=== PATIENT | male | born 1970 | race African-American/Black ===

== ENCOUNTER 2017-04-16 12:00 | Emergency (ER) | payer OTHER, MEDICAID ==
[~2017-04-16] VITALS: Ht 195.6 cm; Wt 90.9 kg
[2017-04-16 15:52] LABS: CLARITY URINE CLEAR (CLEAR); COLOR URINE YELLOW (YELLOW); KETONES URINE TRACE (NEGATIVE); LEUKOCYTE ESTERASE URINE NEGATIVE (NEGATIVE); NITRITE URINE NEGATIVE (NEGATIVE); OCCULT BLOOD URINE NEGATIVE (NEGATIVE); PROTEIN URINE NEGATIVE (NEGATIVE); SPECIFIC GRAVITY URINE 1.018 (1.005-1.030)
[2017-04-16] MEDS ORDERED: SODIUM CHLORIDE 0.9% 1,000 ML IV ONE (16:01)
[2017-04-16] MEDS ORDERED: KETOROLAC 30MG/ML VIAL IV STA (16:01)
[2017-04-16] MEDS ORDERED: ONDANSETRON HCL 4MG/2ML VIAL IV STA (16:01)
[2017-04-16 16:13] LABS: BASOPHILS % 0.5 % (0.0-2.0); EOSINOPHILS % 2.1 % (0.0-5.0); HEMATOCRIT. 44.1 % (42.0-52.0); HEMOGLOBIN. 14.9 g/dL (14.0-18.0); LYMPHOCYTES % 13.3 % (20.0-50.0); MEAN CORPUSCULAR HEMOGLOBIN 31.2 pg (28.0-32.0); MEAN CORPUSCULAR VOLUME 92.5 fL (80.0-94.0); MEAN PLATELET VOLUME 8.5 fl (7.4-10.4); MONOCYTES % 9.7 % (2.0-8.0); NEUTROPHILS % 74.4 % (40.0-76.0); PLATELET 234 x1000/uL (130-400); RED BLOOD CELL COUNT 4.77 mill/uL (4.7-6.1)
[2017-04-16 16:14] LABS: CHLORIDE 104 mEq/L (98-107)
[2017-04-16 16:20] LABS: ETHANOL BLOOD < 10 mg/dL
[2017-04-16 19:27] VITALS: BP 139/87
== END 2017-04-16 20:06 | disposition home or self-care (01) ==
LOC: ER 13:11
DX: K29.00 Acute gastritis without bleeding (principal)
CPT/HCPCS: 36415; 80053; 81003; 83690; 85025; 96361; 96374; 96375; 99284; G0482; J1885; J2405; J7030

== ENCOUNTER 2017-10-10 07:34 | Emergency (ER) | payer OTHER, MEDICAID ==
[~2017-10-10] VITALS: Ht 195.6 cm; Wt 91.0 kg
[2017-10-10] MEDS ORDERED: BACITRACIN ZINC OINT UDPKT TOP ONE (10:30)
[2017-10-10] MEDS ORDERED: IBUPROFEN 600MG TABLET PO ONE (10:30)
[2017-10-10 15:32] VITALS: BP 156/103
== END 2017-10-10 15:34 | disposition home or self-care (01) ==
LOC: ER 09:06
DX: S70.01XA Contusion of right hip, initial encounter (principal); S40.211A Abrasion of right shoulder, initial encounter; S50.311A Abrasion of right elbow, initial encounter; S50.811A Abrasion of right forearm, initial encounter; I10 Essential (primary) hypertension; F17.200 Nicotine dependence, unspecified, uncomplicated; V18.0XXA Pedal cycle driver injured in noncollision transport accident in nontraffic accident, initial encounter; Y93.89 Activity, other specified; Y92.89 Other specified places as the place of occurrence of the external cause; Y99.8 Other external cause status
CPT/HCPCS: 73080; 73090; 73200; 73502; 99284; A4565

== ENCOUNTER 2018-04-25 11:29 | Emergency (ER) | payer MEDICAID, OTHER ==
[~2018-04-25] VITALS: Ht 195.6 cm; Wt 90.0 kg
[2018-04-25 11:51] VITALS: BP 135/89
[2018-04-25] MEDS ORDERED: ACETAMINOPHEN 325MG TABLET PO ONE (12:30)
== END 2018-04-25 13:40 | disposition home or self-care (01) ==
LOC: ER 11:29
DX: M25.462 Effusion, left knee (principal)
CPT/HCPCS: 73562; 99283

== ENCOUNTER 2018-05-23 09:57 | Emergency (ER) | payer OTHER ==
[~2018-05-23] VITALS: Ht 195.6 cm; Wt 91.0 kg
[2018-05-23 10:29] VITALS: BP 152/96
[2018-05-23] MEDS ORDERED: AMLO5TAB88 PO (10:34)
[2018-05-23] MEDS ORDERED: LIDOCAINE HCL/PF 1% 10 MG/ML 5ML VIAL IJ ONE (12:00)
[2018-05-23] MEDS ORDERED: KETOROLAC 30MG/ML VIAL IM ONE (12:00)
== END 2018-05-23 13:25 | disposition home or self-care (01) ==
LOC: ER 10:36
DX: L02.01 Cutaneous abscess of face (principal)
CPT/HCPCS: 10060; 87070; 87205; 96372; 99283; J1885; J3490

== ENCOUNTER 2020-01-14 09:39 | Emergency (ER) | payer OTHER ==
[~2020-01-14] VITALS: Ht 195.6 cm; Wt 91.0 kg
[~2020-01-14 09:39] MED LIST: AMLO5TAB88 PO
[2020-01-14 10:00] VITALS: BP 153/92
[2020-01-14] MEDS ORDERED: KETOROLAC 60MG/2ML VIAL IM ONE (10:00)
== END 2020-01-14 11:19 | disposition home or self-care (01) ==
LOC: ER 09:39
DX: M54.5 Low back pain (principal); I10 Essential (primary) hypertension
CPT/HCPCS: 96372; 99283; J1885

== ENCOUNTER 2020-06-09 08:08 | Emergency (ER) | payer OTHER ==
[~2020-06-09] VITALS: Ht 195.6 cm; Wt 91.0 kg
[2020-06-09 09:40] VITALS: BP 139/97
== END 2020-06-09 09:41 | disposition home or self-care (01) ==
LOC: ER 08:08
DX: M25.511 Pain in right shoulder (principal); I10 Essential (primary) hypertension
CPT/HCPCS: 99281